=== PATIENT | male | born 1985 | race African-American/Black ===

== ENCOUNTER 2018-12-13 00:25 | Emergency (ER) | payer MEDICAID, OTHER ==
[~2018-12-13] VITALS: Ht 175.3 cm; Wt 117.9 kg
--- NOTE | 2018-12-13 00:32 | NUR ---
BIBS. C/O "IM SUICIDAL" -SOB -DIZZY AOX4. AMBULATORY
[2018-12-13 03:40] LABS: BASOPHILS % (AUTO) 0.4 % (0.0-2.0); EOSINOPHILS % (AUTO) 0.9 % (0.0-6.0); HEMATOCRIT 44 % (39-51); HEMOGLOBIN 14.2 g/dL (13.5-17.5); LYMPHOCYTES # (AUTO) 2.7 /CMM (0.8-4.8); LYMPHOCYTES % (AUTO) 24.3 % (20.0-44.0); MEAN CORPUSCULAR HGB CONC 32 g/dl (31.0-36.0); MEAN CORPUSCULAR VOLUME 86 fL (80-96); MONOCYTES # (AUTO) 0.7 /CMM (0.1-1.30); MONOCYTES % (AUTO) 6.7 % (2.0-12.0); NEUTROPHILS # (AUTO) 7.5 /CMM (1.8-8.9); NEUTROPHILS % (AUTO) 67.7 % (43.0-81.0); PLATELET COUNT (AUTO) 282 /CMM (150-450); RED BLOOD CELL COUNT(AUTO) 5.12 MIL/uL (4.5-6.0)
[2018-12-13 03:51] LABS: CALCIUM, SERUM 8.7 mg/dL (8.5-10.1); CARBON DIOXIDE 25 mmol/L (21-32); CHLORIDE 108 mmol/L (98-107); CREATININE 0.8 mg/dL (0.6-1.3); GLUCOSE 97 mg/dL (74-106); POTASSIUM 3.9 mmol/L (3.5-5.1); SODIUM SERUM 146 mmol/L (136-145); UREA NITROGEN, BLOOD 9 mg/dL (7-18)
[2018-12-13 04:04] LABS: ALANINE AMINOTRANSFERASE 29 U/L (12-78); ALBUMIN 3.4 g/dL (3.4-5.0); ALCOHOL, BLOOD < 3 mg/dL (0-0); ALKALINE PHOSPHATASE 133 U/L (46-116); ASPARTATE AMINOTRANSFERASE 21 U/L (15-37); BILIRUBIN,DIRECT 0.1 mg/dL (0.0-0.2); BILIRUBIN,TOTAL 0.4 mg/dL (0.2-1.0)
[2018-12-13 04:05] LABS: ACETAMINOPHEN 0 ug/ml (10-30); SALICYLATE 2.5 mg/dL (2.8-20.0)
--- NOTE | 2018-12-13 04:26 | NUR ---
CALLED [employer]PER[employer] PICKER FOR EVAL.
--- NOTE | 2018-12-13 04:50 | NUR ---
URINE COLLECTED AND SENT TO LAB
--- NOTE | 2018-12-13 04:51 | NUR ---
VO NORVASC 5MG PO PER DR GONZALEZ
[2018-12-13 05:01] LABS: APPEARANCE,URINE Clear (CLEAR); BILIRUBIN,URINE Negative (NEGATIVE); BLOOD, URINE Negative Ery/uL (NEGATIVE); COLOR,URINE Yellow (YELLOW); KETONES,URINE Negative (NEGATIVE); LEUKOCYTE ESTERASE ,URINE Negative (NEGATIVE); NITRITE, URINE Negative (NEGATIVE); PROTEIN,URINE Negative (NEGATIVE); UGLUCOSE Negative (NEGATIVE); UROBILINOGEN,URINE 0.2 EU/dL (0.2)
[2018-12-13 06:39] VITALS: BP 164/110
[2018-12-13] MEDS ORDERED: AMLODIPINE BESYLATE 5 MG TABLET PO ONE (07:00)
--- NOTE | 2018-12-13 10:33 | NUR ---
CLINICALS REFAXED TO [facility]
--- NOTE | 2018-12-13 10:55 | NUR ---
[facility] [phone] EXT 250 ETA [employer] ~ [address] MISHRA ACCEPTING
--- NOTE | 2018-12-13 12:07 | NUR ---
REPORT GIVEN TO EMT FOR TRANSPORT
--- NOTE | 2018-12-13 12:13 | NUR ---
REPORT GIVEN TO SUSANNA TANG AT [facility] FOR [facility]
== END 2018-12-13 12:13 ==
LOC: ER 00:28
DX: R45.851 Suicidal ideations (principal); I10 Essential (primary) hypertension; F17.200 Nicotine dependence, unspecified, uncomplicated; Z59.0 Homelessness
CPT/HCPCS: 36415; 80048; 80076; 80305; 80307; 80329; 81001; 84484; 85025; 99285; G0480; 81000-TC